=== PATIENT | male | born 1980 | race Two or more races ===

== ENCOUNTER 2025-01-31 12:30 | Emergency (ER) | payer OTHER ==
[~2025-01-31] VITALS: Ht 165.1 cm; Wt 72.6 kg
[2025-01-31 14:28] LABS: HEMATOCRIT 46.7 % (39.0-48.0); HEMOGLOBIN 15.8 g/dL (13-16.00); MEAN CELL VOLUME 89.5 fL (80.0-100.00); MEAN CORPUSCULAR HEMOGLOBIN 30.2 pg (27.00-32.0); MEAN CORPUSCULAR HGB CONC 33.9 g/dl (32.0-36.0); PLATELET COUNT 125 K/uL (150-450); RED BLOOD COUNT 5.22 M/uL (4.00-6.00); RED CELL DISTRIBUTION WIDTH 13.3 % (11.5-14.5)
[2025-01-31] MEDS ORDERED: OSEL75CA PO (16:01)
== END 2025-01-31 16:06 | disposition home or self-care (01) ==
LOC: ER 12:33
PROVIDERS: Emergency Medicine
DX: J10.1 Influenza due to other identified influenza virus with other respiratory manifestations (principal); Z20.822 Contact with and (suspected) exposure to COVID-19